=== PATIENT | male | born 1985 | race Caucasian/White ===

== ENCOUNTER 2019-01-01 17:14 | Emergency (ER) | payer OTHER ==
[2019-01-01 17:23] VITALS: BP 136/64; PULSE 84; RESP 20; TEMP 98.3
[2019-01-01] MEDS ORDERED: CEPHALEXIN 500MG STARTER PACK 4 CAP BTL PO STA (17:46)
[2019-01-01] MEDS ORDERED: DIPH,PERTUS(ACELL)TETVAC-LF 0.5 ML VIAL IM ONE (17:46)
[2019-01-01] MEDS ORDERED: Acetaminophen-Codeine 300-30mg TAB PO STA (17:46)
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
== END 2019-01-01 18:28 | disposition home or self-care (01) ==
LOC: EC 17:14
DX: T22.111A Burn of first degree of right forearm, initial encounter (principal); T23.171A Burn of first degree of right wrist, initial encounter; T22.131A Burn of first degree of right upper arm, initial encounter; T31.0 Burns involving less than 10% of body surface; Z79.1 Long term (current) use of non-steroidal anti-inflammatories (NSAID); Z23 Encounter for immunization; X18.XXXA Contact with other hot metals, initial encounter; Y92.69 Other specified industrial and construction area as the place of occurrence of the external cause; Y99.0 Civilian activity done for income or pay
CPT/HCPCS: 16000; 90471; 90715; 99283

== ENCOUNTER 2019-05-19 15:00 | Emergency (ER) | payer OTHER ==
[2019-05-19 15:11] VITALS: BP 161/78; PULSE 92; RESP 20; TEMP 99.2
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
--- NOTE | 2019-05-19 16:09 | XR ---
EXAMINATION TYPE: XR tibia fibula LT DATE OF EXAM: 05/19/2019 COMPARISON: NONE HISTORY: Pain TECHNIQUE: 2 views FINDINGS: Tibia and fibula appear intact. I see no fracture nor dislocation. Ankle joint and knee fany nt appear intact. IMPRESSION: No acute bony abnormality.
--- NOTE | 2019-05-19 16:11 | XR ---
EXAMINATION TYPE: XR hand complete RT DATE OF EXAM: 05/19/2019 COMPARISON: NONE HISTORY: Pain TECHNIQUE: 3 views FINDINGS: There is acute nondisplaced spiral fracture of the midshaft of the fourth metacarpal. There is soft tissue swelling. There is no dislocation. Joint spaces are fairly normal. IMPRESSION: Acute fracture fourth metacarpal.
--- NOTE | 2019-05-19 16:12 | XR ---
EXAMINATION TYPE: XR knee complete RT DATE OF EXAM: 05/19/2019 COMPARISON: NONE HISTORY: Knee pain TECHNIQUE: 3 views FINDINGS: There is soft tissue swelling anterior to the knee joint on the lateral view. I see no frac ture nor dislocation. Joint spaces are fairly normal. There is no sign of joint effusion. IMPRESSION: Soft tissue swelling. No fracture seen.
== END 2019-05-19 16:30 | disposition home or self-care (01) ==
LOC: EC 15:00
DX: S62.354A Nondisplaced fracture of shaft of fourth metacarpal bone, right hand, initial encounter for closed fracture (principal); S80.01XA Contusion of right knee, initial encounter; S50.812A Abrasion of left forearm, initial encounter; S80.12XA Contusion of left lower leg, initial encounter; V43.52XA Car driver injured in collision with other type car in traffic accident, initial encounter; Y93.89 Activity, other specified; Y92.410 Unspecified street and highway as the place of occurrence of the external cause
CPT/HCPCS: 29125; 99284

== ENCOUNTER → 2021-08-20 | Outpatient (CLI) | payer OTHER ==
--- NOTE | 2021-08-20 16:57 | XR ---
EXAMINATION TYPE: XR hand complete 3 views LT, XR tibia fibula 2 views LT, XR wrist complete 4 views LT, XR knee complete 3 views LT DATE OF EXAM: 08/20/2021 COMPARISON: NONE HISTORY: 36-year-old male pain after fall yesterday. S60.212A, S60.222A, S80.02XA, S80.12XA FINDINGS: Left wrist: The radiocarpal and distal radioulnar joint appear intact. Negative ulnar variance. Mid carpal compar tment appears intact. No acute fracture, subluxation, dislocation. Left hand: No acute fracture, subluxation, dislocation. Projection artifact or nutrient foramen first distal pha langeal base. Left knee: There is mild tricompartmental degenerative spurring. Small knee joint effusion. Extensor mechanism a ppears intact. No acute fracture, subluxation, dislocation. Left tibia/fibula: Mild soft tissue swelling. Ankle articulation appears grossly intact. No acute fracture. Some anterio r soft tissue swelling along the lower leg. Mild anterior degenerative spurring at the tibiotalar fany nt. IMPRESSION: 1. Left wrist and hand: Incidental negative ulnar variance. No acute osseous abnormality seen. 2. Left knee: Mild tricompartmental osteoarthrosis. Small knee joint effusion is nonspecific. No acut e osseous abnormality seen. If swelling or pain persists and concern for internal derangement, MRI ca n be performed. 3. Left tibia/fibula: Some anterior soft tissue swelling along the lower leg. No acute osseous abnorm ality seen.
== END | disposition home or self-care (01) ==
LOC: RADXRMAIN 15:37
PROVIDERS: ATTEND Emergency Medicine
DX: M79.89 Other specified soft tissue disorders (principal); M25.462 Effusion, left knee; M25.532 Pain in left wrist; S69.92XA Unspecified injury of left wrist, hand and finger(s), initial encounter

== ENCOUNTER → 2021-08-27 | Outpatient (CLI) | payer OTHER ==
--- NOTE | 2021-08-27 15:28 | US ---
EXAMINATION TYPE: US venous doppler duplex LE LT DATE OF EXAM: 08/27/2021 3:12 PM COMPARISON: NONE CLINICAL HISTORY: S80.12XD Contusion of left lower leg,S60.21ZD. Left lower leg pain and swelling SIDE PERFORMED: Left TECHNIQUE: The lower extremity deep venous system is examined utilizing real time linear array sonog hung with graded compression, doppler sonography and color-flow sonography. VESSELS IMAGED: Common Femoral Vein Deep Femoral Vein Greater Saphenous Vein * Femoral Vein Popliteal Vein Small Saphenous Vein * Proximal Calf Veins (* superficial vessels) Left Leg: Appears negative for DVT IMPRESSION: 1. Left lower extremity ultrasound negative for deep venous thrombosis.
--- NOTE | 2021-08-27 15:42 | XR ---
EXAMINATION TYPE: XR wrist complete LT DATE OF EXAM: 08/27/2021 CLINICAL HISTORY: Recent fall injury with persistent pain. TECHNIQUE: Frontal, lateral and oblique images of the left wrist are obtained. 4 view scaphoid view is performed. COMPARISON: Left wrist x-ray one week ago. FINDINGS: There is no acute fracture/dislocation evident in the left wrist. The joint spaces in the left wrist appear within normal limits. The overlying soft tissue appears unremarkable. IMPRESSION: As above. No significant change from prior.
--- NOTE | 2021-08-27 15:42 | XR ---
EXAMINATION TYPE: XR tibia fibula LT DATE OF EXAM: 08/27/2021 CLINICAL HISTORY: Contusion. Fall injury 9 days ago with persistent pain and swelling. TECHNIQUE: Two views of the left leg are obtained. COMPARISON: Left leg x-ray one week ago.. FINDINGS: There is no acute fracture or dislocation seen in the left tibia or fibula. The left knee and ankle joints remain within normal limits. Mild to moderate diffuse subcutaneous edema distally i s present. IMPRESSION: There is no acute fracture or dislocation seen in the left tibia or fibula. No significa nt change from prior.
== END | disposition home or self-care (01) ==
LOC: RADUSWWP 14:48
PROVIDERS: ATTEND Emergency Medicine
DX: M25.532 Pain in left wrist (principal)

== ENCOUNTER → 2021-09-09 | Outpatient (CLI) | payer OTHER ==
--- NOTE | 2021-09-10 07:06 | MR ---
EXAMINATION TYPE: MR wrist LT wo con DATE OF EXAM: 09/09/2021 COMPARISON: None HISTORY: Left wrist pain for 3 weeks due to fall at work. Multiplanar multiecho imaging of the left wrist without contrast. Carpal bones are intact. Intercarpal joint spaces are fairly normal. Radius and ulna appear intact. T he triangular cartilage appears intact. Collateral ligaments appear intact. There is no sign of any s ignificant joint effusion. Proximal metacarpals appear intact. There is no evidence of a soft tissue mass. There is no evidence of a fracture. IMPRESSION: Negative left wrist MR exam. No fracture seen..
== END | disposition home or self-care (01) ==
LOC: RADMRIMAIN 10:51
PROVIDERS: ATTEND Emergency Medicine
DX: M25.532 Pain in left wrist (principal); S69.92XA Unspecified injury of left wrist, hand and finger(s), initial encounter

== ENCOUNTER 2024-04-27 17:18 | Emergency (ER) | payer OTHER ==
[2024-04-27 17:47] VITALS: PULSE 74
--- NOTE | 2024-04-27 18:28 | ED ---
General Adult HPI - General Chief complaint: Extremity Injury, Lower Stated complaint: Fall/L Arm Injury Time Seen by Provider: 04/27/24 18:26 Source: patient, RN notes reviewed Mode of arrival: ambulatory Limitations: no limitations - History of Present Illness Initial comments: 38-year-old male presenting with left arm pain status post mechanical fall 1 hour prior to arrival. States he was at work and tripped and fell directly onto a steel bathtub. He hit his left arm and shoulder on the way down. Denies numbness and tingling but admits to increasing pain with movement. Denies hitting head or losing consciousness. - Related Data Home Medications Medication Instructions Recorded Confirmed Meloxicam [Mobic] 15 mg PO DAILY 01/01/19 01/01/19 Previous Rx's Medication Instructions Recorded Bacitracin Zinc Oint 1 applic TOPICAL BID #60 gm 01/01/19 Cephalexin [Keflex] 500 mg PO Q8HR #21 cap 01/01/19 Ibuprofen [Motrin] 800 mg PO Q6HR #30 tab 05/19/19 Allergies Allergy/AdvReac Type Severity Reaction Status Date / Time No Known Allergies Allergy Verified 04/27/24 17:47 Review of Systems ROS Statement: Those systems with pertinent positive or pertinent negative responses have been documented in the HPI. ROS Other: All systems not noted in ROS Statement are negative. Past Medical History Past Medical History: No Reported History History of Any Multi-Drug Resistant Organisms: None Reported Past Surgical History: No Surgical Hx Reported Past Psychological History: No Psychological Hx Reported Smoking Status: Never smoker Past Alcohol Use History: None Reported Past Drug Use History: None Reported General Exam - General Exam Comments Initial Comments: Visual Physical Exam Vital signs reviewed General: Well-appearing, nontoxic, no acute distress. Head: Normocephalic, atraumatic Eyes: PERRLA, EOMI ENT: Airway patent Chest: Nonlabored breathing Skin: No visual rash, normal skin tone Neuro: Alert and oriented 3 Musculoskeletal: No gross abnormalities Limitations: no limitations General appearance: alert, in no apparent distress Head exam: Present: atraumatic, normocephalic, normal inspection Eye exam: Present: normal appearance, PERRL, EOMI. Absent: scleral icterus, conjunctival injection, periorbital swelling ENT exam: Present: normal exam, mucous membranes moist Neck exam: Present: normal inspection. Absent: tenderness, meningismus, lymphadenopathy Respiratory exam: Present: normal lung sounds bilaterally. Absent: respiratory distress, wheezes, rales, rhonchi, stridor Cardiovascular Exam: Present: regular rate, normal rhythm, normal heart sounds. Absent: systolic murmur, diastolic murmur, rubs, gallop, clicks GI/Abdominal exam: Present: soft, normal bowel sounds. Absent: distended, tenderness, guarding, rebound, rigid Left Shoulder Exam: Present: normal inspection, full ROM. Absent: tenderness, swelling Upper Arm exam: Present: normal inspection, full ROM. Absent: tenderness, swelling Elbow exam: Present: normal inspection, full ROM. Absent: tenderness, swelling Forearm Wrist exam: Present: full ROM, tenderness (Mild tenderness to palpation on dorsal aspect of right forearm), swelling. Absent: normal inspection (4 x 4 cm area of edema present on dorsal aspect of right forearm. There is no overlying erythema), laceration, deformity, erythema Hand Wrist exam: Present: normal inspection, full ROM. Absent: tenderness, swelling Vascular: Present: normal capillary refill (Full sensation and radial pulses bilaterally.). Absent: vascular compromise Neurological exam: Present: alert, oriented X3, CN II-XII intact Psychiatric exam: Present: normal affect, normal mood Course Vital Signs 04/27/24 04/27/24 17:45 21:13 Temperature 98.1 F 98.2 F Pulse Rate 74 74 Respiratory 20 18 Rate Blood Pressure 132/77 127/84 O2 Sat by Pulse 96 97 Oximetry Medical Decision Making - Medical Decision Making I completed the quick note portion of this chart signed Kaylie Jiang PA-C Was pt. sent in by a medical professional or institution ([facility], FIELD SUPPORT TECHNICIAN, urgent care, hospital, or [facility]...) When possible be specific @ -No Did you speak to anyone other than the patient for history (EMS, parent, family, police, friend...)? What history was obtained from this source @ -No Did you review nursing and triage notes (agree or disagree)? Why? @ -I reviewed and agree with nursing and triage notes Were old charts reviewed (outside hosp., previous admission, EMS record, old EKG, old radiological studies, urgent care reports/EKG's, [facility] records)? Report findings @ -No old charts were reviewed Differential Diagnosis (chest pain, altered mental status, abdominal pain women, abdominal pain men, vaginal bleeding, weakness, fever, dyspnea, syncope, headache, dizziness, GI bleed, back pain, seizure, CVA, palpatations, mental health, musculoskeletal)? @ -Differential Musculoskeletal Muscular strain, contusion, ligament sprain, fracture, arthritis, septic arthritis, bursitis, cellulitis, muscle spasm, nerve compression, DVT, arterial occlusion, herpes zoster, electrolyte abnormality, tumor.... This is not meant to be in all inclusive list EKG interpreted by me (3pts min.). @ -None X-rays interpreted by me (1pt min.). @ -None done CT interpreted by me (1pt min.). @ -None done U/S interpreted by me (1pt. min.). @ -None done What testing was considered but not performed or refused? (CT, X-rays, U/S, labs)? Why? @ -None What meds were considered but not given or refused? Why? @ -None Did you discuss the management of the patient with other professionals (professionals i.e. , PA, FIELD SUPPORT TECHNICIAN, lab, RT, psych nurse, social organization professor, lollypop machine operator, teacher, program officer, case specialist)? Give summary @ -No Was smoking cessation discussed for >3mins.? @ -No Was critical care preformed (if so, how long)? @ -No Were there social determinants of health that impacted care today? How? (Homelessness, low income, unemployed, alcoholism, drug addiction, transportation, low edu. Level, literacy, decrease access to med. care, [facility], rehab)? @ -No Was there de-escalation of care discussed even if they declined (Discuss DNR or withdrawal of care, Hospice)? DNR status @ -No What co-morbidities impacted this encounter? (DM, HTN, Smoking, COPD, CAD, Cancer, CVA, ARF, Chemo, Hep., AIDS, mental health diagnosis, sleep apnea, morbid obesity)? @ -None Was patient admitted / discharged? Hospital course, mention meds given and route, prescriptions, significant lab abnormalities, going to OR and other pertinent info. @ -Patient was discharged. Patient was seen and evaluated for left arm injury status post mechanical fall prior to arrival. Patient is neurovascularly intact. X-ray reveals no acute dislocation or fracture. Michael wrap applied. Diagnosis of left arm strain discussed with patient. Supportive care discussed. Advised to follow-up with PCP in 1 week if pain persist. Urine drug screen and BAT performed due to work-related injury. Paperwork regarding restrictions completed and given to patient. Strict return/alarm symptoms discussed with patient in detail and he shows understanding and agrees with plan. Case discussed with my attending Dr. Toledo. Patient was discharged in stable condition. Undiagnosed new problem with uncertain prognosis? @ -No Drug Therapy requiring intensive monitoring for toxicity (Heparin, Nitro, Insulin, Cardizem)? @ -No Were any procedures done? @ -No Diagnosis/symptom? @ -Left forearm strain Acute, or Chronic, or Acute on Chronic? @ -Acute Uncomplicated (without systemic symptoms) or Complicated (systemic symptoms)? @ -Uncomplicated Side effects of treatment? @ -No Exacerbation, Progression, or Severe Exacerbation? @ -No Poses a threat to life or bodily function? How? (Chest pain, USA, NM, pneumonia, PE, COPD, DKA, ARF, appy, cholecystitis, CVA, Diverticulitis, Homicidal, Suicidal, threat to staff... and all critical care pts) @ -Low likelihood Disposition Clinical Impression: Strain of left forearm Disposition: HOME SELF-CARE Condition: Stable Is patient prescribed a controlled substance at d/c from ED?: No Referrals: Nonstaff,Physician [Primary Care Provider] - 1-2 days Time of Disposition: 23:12
--- NOTE | 2024-04-27 19:22 | XR ---
EXAMINATION TYPE: XR forearm LT, XR humerus LT DATE OF EXAM: 04/27/2024 7:02 PM CLINICAL INDICATION:Male, 38 years old with history of Left arm injury; COMPARISON: None TECHNIQUE: XR forearm LT, XR humerus LT; forearm was examined in AP and lateral projections. FINDINGS: No acute osseous pathology, soft tissue swelling or joint dislocations are seen. Soft tissue swelling of the forearm posteriorly no evidence for osseous erosion. No radiopaque foreig n bodies. Olecranon process triceps insertional well-corticated osseous body. Mild degeneration changes of the left shoulder joint. IMPRESSION: 1. Soft tissue swelling the dorsal aspect of the left forearm. No radiopaque foreign body. Correlate for bruising/hematoma. 2. No evidence of acute fracture.
[2024-04-27 21:14] VITALS: BP 127/84; RESP 18; TEMP 98.2
== END 2024-04-27 21:29 | disposition home or self-care (01) ==
LOC: EC 17:18
DX: S56.912A Strain of unspecified muscles, fascia and tendons at forearm level, left arm, initial encounter (principal); W01.0XXA Fall on same level from slipping, tripping and stumbling without subsequent striking against object, initial encounter; Y99.0 Civilian activity done for income or pay
CPT/HCPCS: 99283